=== PATIENT | male | born 1985 | race Caucasian/White ===

== ENCOUNTER 2020-02-25 10:13 | Emergency (ER) | payer BC, SELFPAY ==
--- NOTE | ~2020-02-25 | CT_ITS ---
EXAMINATION: CT lumbar spine wo con DATE: 02/25/2020 11:14 INDICATION: Low back pain TECHNIQUE: Computed tomography (CT) of the lumbar spine was performed without intravenous contrast. A utomated exposure control and iterative reconstruction technique were employed. The dose-length produ ct was 612.24 mGy-cm. COMPARISON: None FINDINGS: 1-2 mm retrolisthesis L5 on S1. Vertebral body heights are normal. No fracture. Mild disc height loss at L4-L5 and L5-S1. Small sclerotic bone island with spiculated margins in the left innominate bone. Paravertebral soft tissues are unremarkable. The following disc levels are specifically discussed: T12-L1: Disc is mildly bulging. There is minimal bilateral facet joint osteoarthritis. There is no ne ural foraminal stenosis. There is minimal central canal stenosis. L1-L2: Disc is mildly bulging. There is mild bilateral facet joint osteoarthritis. There is no neural foraminal stenosis. There is mild central canal stenosis. L2-L3: Disc is bulging. There is mild bilateral facet joint osteoarthritis. There is no neural forami nal stenosis. There is mild central canal stenosis. L3-L4: Disc is bulging. There is mild left and minimal right facet joint osteoarthritis. There is mil d bilateral neural foraminal stenosis. There is mild central canal stenosis. L4-L5: Disc is bulging. There is mild right and minimal left facet joint osteoarthritis. There is mil d bilateral neural foraminal stenosis. There is mild to moderate central canal stenosis. L5-S1: Disc is bulging. There is mild bilateral facet joint osteoarthritis. There is minimal bilatera l neural foraminal stenosis. There is no central canal stenosis. IMPRESSION: 1. Mild lumbar spondylosis. No acute osseous abnormality. Reviewed, dictated and finalized at location A.
[2020-02-25 10:27] VITALS: BP 127/76; PULSE 72; RESP 16; TEMP 36.7; O2SAT 99
--- NOTE | 2020-02-25 10:54 | ED.BACK ---
HPI - Back Pain/Injury General Chief Complaint: Back Pain/Injury Stated Complaint: Low back pain Time Seen by Provider: 02/25/20 10:36 Source: patient Mode of arrival: ambulatory Limitations: no limitations History of Present Illness HPI Narrative: This is a 34-year-old male that presents the emergency department for low back pain since yesterday. Reports history of chronic back problems. Reports yesterday he was lifting his child and since has had exacerbation of his back pain. He took ibuprofen at home with little relief. Denies fever, saddle anesthesia, or bowel/bladder incontinence. Related Data Allergies Allergy/AdvReac Type Severity Reaction Status Date / Time amoxicillin Allergy Unknown Unknown Verified 02/25/20 10:31 Review of Systems Review of Systems: Narrative: CONSTITUTIONAL: Denies fever SKIN: Denies rash MUSCULOSKELETAL: Reports back pain, joint pain, and myalgia. NEUROLOGIC: Denies numbness, or weakness. All systems reviewed & are unremarkable except as noted in HPI and below PMFSH Family History Family History (Updated 01/18/20 @ 16:54 by Lissy Alston PA-C) Mother Patient's mother is in good health Father Malignant neoplasm of prostate, Onset Age: 59 Other Acute myocardial infarction Family history of coronary artery disease Family history of malignant neoplasm of breast Social History Social History Smoking status: Never smoker Second hand tobacco smoke exposure: No Alcohol intake: never Exam Narrative: Exam Narrative: GENERAL: Well-appearing, well-nourished, and in no acute distress. HEAD: Normocephalic, atraumatic. EYES: EOMI. CHEST: Clear to auscultation. No respiratory distress. No wheezes rales or rhonchi HEART: Regular rate and rhythm. No murmur heard. Normal peripheral pulses. BACK: No midline spinal tenderness EXTREMITIES: Normal range of motion. No edema. Strength equal in bilateral lower extremities. Normal patellar reflexes bilaterally SKIN: Warm, dry, no rash. NEURO: No focal deficits. Alert and oriented x3. PSYCH: Normal mood and affect Course Vital Signs Vital signs: Vital Signs Temperature 98.1 F 02/25/20 10:27 Pulse Rate 72 02/25/20 10:27 Respiratory Rate 16 02/25/20 10:27 Blood Pressure 127/76 02/25/20 10:27 Pulse Oximetry 99 02/25/20 10:27 Temperature 98.1 F 02/25/20 10:27 Pulse Rate 72 02/25/20 10:27 Respiratory Rate 16 02/25/20 10:27 Blood Pressure 127/76 02/25/20 10:27 Pulse Oximetry 99 02/25/20 10:27 MDM - Back Pain/Injury MDM Narrative Medical decision making narrative: Patient presents the emergency department for low back pain since yesterday. He is afebrile and nontoxic-appearing. He is neurologically intact. CT scan of the lumbar spine shows mild lumbar spondylosis. No acute osseous abnormalities. Patient and family updated on case findings. He was instructed to rest, use ice/heat and take [id number] pain medication as needed. He will be prescribed muscle relaxer as needed for pain. Patient is stable and felt appropriate for further outpatient evaluation. He is to follow-up with primary care doctor. He was given warnings to return to the ER Imaging Data Radiologist's impression: ITS Impressions Lumbar Spine CT 02/25/20 11:25 IMPRESSION: 1. Mild lumbar spondylosis. No acute osseous abnormality. Critical Care Time Critical Care Time Critical Care Time: No Discharge Plan Discharge Clinical Impression: Low back pain Qualifiers: Chronicity: acute Back pain laterality: right Sciatica presence: with sciatica Sciatica laterality: sciatica of right side Qualified Code(s): M54.41 - Lumbago with sciatica, right side Patient Disposition: Home, Self-Care Condition: Stable Instructions: Lumbar Radiculopathy (ED) Additional Instructions: Return to the ER if you experience weakness, numbness, bowel/bladder i
[2020-02-25] MEDS: KETOROLAC (*BKC) 60 MG/2 ML VIAL IM (12:26)
== END 2020-02-25 12:35 | disposition home or self-care (01) ==
PROVIDERS: Emergency Provider Emergency Medicine; PCP Family Medicine
DX: M54.41 Lumbago with sciatica, right side (principal); M47.816 Spondylosis without myelopathy or radiculopathy, lumbar region
CPT/HCPCS: 72131; 96372; 99284; J1885; J3360